=== PATIENT | male | born 1950 | race Caucasian/White ===

== ENCOUNTER → 2017-09-17 | Outpatient (CLI) | payer MEDICARE, OTHER | END | disposition home or self-care (01) | LOC: PCVCCLINIC 14:09 | PROVIDERS: ATTEND Internal Medicine Cardiovascular Disease | DX: I10 Essential (primary) hypertension (principal); E78.00 Pure hypercholesterolemia, unspecified; R55 Syncope and collapse; I38 Endocarditis, valve unspecified; R06.09 Other forms of dyspnea; Z87.891 Personal history of nicotine dependence | CPT/HCPCS: 80061; 93005; G0463 ==

== ENCOUNTER → 2017-10-05 | Outpatient (CLI) | payer MEDICARE, OTHER ==
--- NOTE | 2017-10-05 15:45 | PCVCIMAG ---
EXAM: BILATERAL CAROTID DUPLEX INDICATION: Syncope. Carotid bruit. FINDINGS: Doppler Measurements (centimeters per second): RIGHT: Peak CCA-74, Peak ECA-103, Diastolic ICA-22, Peak ICA-62, ICA/CCA Ratio-0.8. LEFT: Peak CCA-94, Peak ECA-115, Diastolic ICA-24, Peak ICA-67, ICA/CCA Ratio-0.8. RIGHT CAROTID: The carotid bulb has minimal plaque. The proximal internal carotid artery shows no significant stenosis. The common carotid artery shows no significant stenosis. The external carotid artery shows no significant stenosis. LEFT CAROTID: The carotid bulb has mild plaque. The proximal internal carotid artery shows <40% stenosis. The common carotid artery shows no significant stenosis. The external carotid artery shows no significant stenosis. Antegrade flow in both vertebral arteries. IMPRESSION: No significant stenosis of the right internal carotid artery with minimal plaque. <40% stenosis of the left internal carotid artery with mild plaque. LOC:[place] [id number]
--- NOTE | 2017-10-05 18:31 | PCVCIMAG ---
APPROVED REPORT Study performed: 10/05/2017 16:08:56 Exam: Stress Echocardiogram Indication: Dyspnea, Near syncope, HTN, HLP Patient Location: Echo lab Stress Nurse: Brissa Lewis RN Status: routine Ht: 5 ft 10 in HR: 64 bpm BP: 110/72 mmHg Rhythm: NSR Procedure The patient underwent an Exercise Stress Test using the Rio Protocol. Blood pressure, heart rate, and EKG were monitored. An Echocardiogram was performed by battery service technician in four stages in quad fashion. At peak stress, four selected images were obtained and placed side by side with resting images for comparison. Stress Test Details Stress Test: Exercise stress testing was performed using a Rio protocol. HR Resting HR: 64 bpmMax Heart Rate (APMHR): 153 bpm Max HR Achieved: 164 bpmTarget HR (85% APMHR): 130 bpm % of APMHR: 107 Recovery HR: 88 bpm HR response to stress: Normal HR response to stress BP Resting BP: 110/72 mmHg Max BP: 186/70 mmHg Recovery BP: 138/76 mmHg ECG Resting ECG: Sinus Rhythm Stress ECG: Sinus Rhythm ST Change: Normal Arrhythmia: rare isolated PVCs Recovery ECG: Sinus Rhythm Recovery ST Change: Normal Recovery Arrhythmia: None Clinical Reason for Termination: Maximal effort Stress Symptoms: Dyspnea Exercise duration: 7 min 21 sec Highest Stage Achieved: Stage 3: 3.4 mph at 14% grade. Exercise capacity: 10.1 METs Overall Exercise Capacity for Age: Normal Angina Score: None Pre-Stress Echo The resting Echocardiogram showed normal left ventricular contractility with an estimated Ejection Fraction of about >55%. Normal wall motion in all segments on baseline images. Post-Stress Echo The stress Echocardiogram showed normal left ventricular contractility with an estimated Ejection Fraction of about 65%. Normal augmentation of wall motion in all segments on post stress images. Clinical No clinical or ECG evidence for ischemia. Conclusion Clinical Response: Non-ischemic Exercise Capacity: Average Stress ECG Response: Non-ischemic Stress Echo Images: Non-ischemic The left ventricle is normal in size and wall thickness in both the rest and stress images. Other Information Study Quality: Adequate <Conclusion> The left ventricle is normal in size and wall thickness in both the rest and stress images.
== END | disposition home or self-care (01) ==
LOC: PCVCIMAG 16:53
PROVIDERS: ATTEND Internal Medicine Cardiovascular Disease
DX: I65.22 Occlusion and stenosis of left carotid artery (principal); I10 Essential (primary) hypertension; E78.5 Hyperlipidemia, unspecified
CPT/HCPCS: 93325; 93351; 93880

== ENCOUNTER → 2018-12-23 | Outpatient (CLI) | payer MEDICARE, OTHER ==
--- NOTE | 2018-12-23 14:51 | PCVCIMAG ---
APPROVED REPORT Study performed: 12/23/2018 13:21:15 Exam: Stress Echocardiogram Indication: Hyperlipidemia, Hypertension Patient Location: Echo lab Stress Nurse: Brissa Lewis RN Status: routine Ht: 5 ft 10 in HR: 58 bpm BP: 130/80 mmHg Rhythm: NSR Procedure The patient underwent an Exercise Stress Test using the Rio Protocol. Blood pressure, heart rate, and EKG were monitored. An Echocardiogram was performed by plumbing service technician in four stages in quad fashion. At peak stress, four selected images were obtained and placed side by side with resting images for comparison. Stress Test Details Stress Test: Exercise stress testing was performed using a Rio protocol. HR Resting HR: 58 bpmMax Heart Rate (APMHR): 151 bpm Max HR Achieved: 153 bpmTarget HR (85% APMHR): 128 bpm % of APMHR: 101 Recovery HR: 79 bpm HR response to stress: Normal HR response to stress BP Resting BP: 130/80 mmHg Max BP: 210/80 mmHg Recovery BP: 146/78 mmHg BP response to stress: Normal blood pressure response to stress. ECG Resting ECG: Sinus Rhythm Stress ECG: Sinus Rhythm Recovery ECG: Sinus Rhythm Clinical Reason for Termination: Maximal effort Exercise duration: 9 min 46 sec Highest Stage Achieved: Stage 4: 4.2 mph at 16% grade. Exercise capacity: 12.60 METs Overall Exercise Capacity for Age: Normal Pre-Stress Echo The resting Echocardiogram showed normal left ventricular contractility with an estimated Ejection Fraction of about 55-60%. Post-Stress Echo The stress Echocardiogram showed normal left ventricular contractility with an estimated Ejection Fraction of about 65-70%. Normal augmentation of wall motion in all segments on post stress images. Clinical No clinical or ECG evidence for ischemia. Conclusion Clinical Response: Non-ischemic Exercise Capacity: Average Stress ECG Response: Non-ischemic Stress Echo Images: Non-ischemic The left ventricle is normal in size in both the rest and stress images. Mild concentric left ventricular hypertrophy. Mild aortic insufficiency, Trace mitral and tricuspid insufficiency. Pulmonary artery pressure is 32mmHg. Other Information Study Quality: Good <Conclusion> The left ventricle is normal in size in both the rest and stress images. Mild concentric left ventricular hypertrophy. Mild aortic insufficiency, Trace mitral and tricuspid insufficiency. Pulmonary artery pressure is 32mmHg.
== END | disposition home or self-care (01) ==
LOC: PCVCIMAG 13:09
PROVIDERS: ATTEND Internal Medicine Cardiovascular Disease
DX: I11.9 Hypertensive heart disease without heart failure (principal); I35.1 Nonrheumatic aortic (valve) insufficiency; I27.20 Pulmonary hypertension, unspecified; I10 Essential (primary) hypertension; E11.9 Type 2 diabetes mellitus without complications; E78.00 Pure hypercholesterolemia, unspecified; Z90.09 Acquired absence of other part of head and neck; Z82.49 Family history of ischemic heart disease and other diseases of the circulatory system; Z87.891 Personal history of nicotine dependence; Z72.89 Other problems related to lifestyle
CPT/HCPCS: 93325; 93351